=== PATIENT | female | born 1980 | race Caucasian/White ===

== ENCOUNTER 2018-06-01 17:55 | Observation (INO) | payer OTHER ==
[~2018-06-01] VITALS: Ht 162.6 cm; Wt 54.3 kg
[2018-06-01 20:18] VITALS: BP 107/71
[2018-06-01] MEDS ORDERED: PLEASE ENTER ALLERGIES MC SCH (23:30)
[2018-06-01] MEDS ORDERED: morphine SULFATE 10 MG/ML, 1ML IVPush PRN (23:30)
[2018-06-01] MEDS ORDERED: KETOROLAC 30 MG/1 ML IVPush PRN (23:30)
[2018-06-01] MEDS ORDERED: BISACODYL 10 MG SUPP PR PRN (23:30)
[2018-06-02] MEDS ORDERED: DIVA500T4 PO (00:10)
[2018-06-02] MEDS ORDERED: NORE0.3517 PO (00:10)
[2018-06-02] MEDS ORDERED: PANT40TA3 PO (00:10)
[2018-06-02] MEDS: NS + 20MEQ KCL 1,000 ML IV SCH ×3 (00:49→19:06)
[2018-06-02] MEDS ORDERED: NIMO30CA3 PO (01:08)
[2018-06-02] MEDS ORDERED: PROM25AM6 PO (01:08)
[2018-06-02 02:08] VITALS: BP 102/67
[2018-06-02 05:38] LABS: BASOPHILS # (AUTO) 0.03 x10^3/uL (0-0.1); BASOPHILS % (AUTO) 1 % (0-1); EOSINOPHILS # (AUTO) 1.45 x10^3/uL (0-0.4); EOSINOPHILS % (AUTO) 22 % (1-7); LYMPHOCYTES # (AUTO) 2.78 x10^3/uL (1-3.4); LYMPHOCYTES % (AUTO) 42 % (22-44); MD NO; MEAN CORPUSCULAR HEMOGLOBIN 30.6 pg (27.0-34.8); MEAN PLATELET VOLUME 7.8 fL (7.4-10.4); MONOCYTES # (AUTO) 0.38 x10^3/uL (0.2-0.8); MONOCYTES % (AUTO) 6 % (2-9); NEUTROPHILS # (AUTO) 2.03 x10^3/uL (1.8-6.8); NEUTROPHILS % (AUTO) 30 % (42-75); PLATELET COUNT 212 x10^3/uL (130-400); RED BLOOD COUNT 4.01 x10^6/uL (3.82-5.3); RED CELL DISTRIBUTION WIDTH 13.7 % (9.6-15.2)
[2018-06-02 05:48] LABS: ALBUMIN 2.5 g/dL (3.4-5.0); ANION GAP 7 mmol/L (5-15); CHLORIDE 115 mmol/L (98-107)
[2018-06-02 05:53] LABS: ALANINE AMINOTRANSFERASE 85 U/L (12-78); ALKALINE PHOSPHATASE 72 U/L (45-117); BILIRUBIN,TOTAL 0.6 mg/dL (0.2-1.0); CREATININE 0.62 mg/dL (0.55-1.02); TOTAL PROTEIN 5.5 g/dL (6.4-8.2)
[2018-06-02 07:46] VITALS: BP 98/64
[2018-06-02] MEDS ORDERED: NIFE30TA13 PO (10:17)
[2018-06-02 13:50] VITALS: BP 114/74
[2018-06-02] MEDS ORDERED: SINCALIDE (KINEVAC) 5 MCG ONE (14:11)
[2018-06-02 19:42] VITALS: BP 112/76
[2018-06-02] MEDS: DIVALPROEX 500 MG TAB.ER.24H PO SCH (21:26)
[2018-06-02] MEDS: ONDANSETRON 2MG/ML, 2ML IVPush PRN (21:34)
[2018-06-02 23:42] LABS: CLOSTRIDIUM DIFFICILE ANTIGEN NEGATIVE; CLOSTRIDIUM DIFFICILE TOXIN NEGATIVE (Negative)
[2018-06-03 02:36] VITALS: BP 114/73
[2018-06-03] MEDS: NS + 20MEQ KCL 1,000 ML IV SCH ×2 (03:35→15:50)
[2018-06-03 06:02] LABS: BASOPHILS # (AUTO) 0.01 x10^3/uL (0-0.1); BASOPHILS % (AUTO) 0 % (0-1); EOSINOPHILS # (AUTO) 1.35 x10^3/uL (0-0.4); EOSINOPHILS % (AUTO) 20 % (1-7); LYMPHOCYTES # (AUTO) 2.59 x10^3/uL (1-3.4); LYMPHOCYTES % (AUTO) 39 % (22-44); MD NO; MEAN CORPUSCULAR HEMOGLOBIN 30.4 pg (27.0-34.8); MEAN CORPUSCULAR HGB CONC 33.6 g/dL (32.4-35.8); MEAN CORPUSCULAR VOLUME 90.4 fL (80-100); MONOCYTES # (AUTO) 0.51 x10^3/uL (0.2-0.8); MONOCYTES % (AUTO) 8 % (2-9); NEUTROPHILS # (AUTO) 2.15 x10^3/uL (1.8-6.8); NEUTROPHILS % (AUTO) 33 % (42-75); PLATELET COUNT 211 x10^3/uL (130-400); RED BLOOD COUNT 4.13 x10^6/uL (3.82-5.3); RED CELL DISTRIBUTION WIDTH 13.1 % (9.6-15.2)
[2018-06-03 06:15] LABS: ALBUMIN 2.8 g/dL (3.4-5.0); ANION GAP 8 mmol/L (5-15); CALCIUM 8.3 mg/dL (8.5-10.1); CHLORIDE 111 mmol/L (98-107)
[2018-06-03 06:20] LABS: ALANINE AMINOTRANSFERASE 78 U/L (12-78); ALKALINE PHOSPHATASE 72 U/L (45-117); BILIRUBIN,TOTAL 0.7 mg/dL (0.2-1.0); CREATININE 0.66 mg/dL (0.55-1.02)
[2018-06-03 07:19] VITALS: BP 114/71
[2018-06-03] MEDS: PANTOPROZOLE 40MG TABLET PO SCH (08:07)
[2018-06-03] MEDS: niFEDipine ER 30 MG TABLET.ER PO SCH (08:08)
[2018-06-03] MEDS: DIVALPROEX 500 MG TAB.ER.24H PO SCH ×2 (08:08→21:31)
[2018-06-03] MEDS ORDERED: PANTOPROZOLE 40MG TABLET PO SCH (09:00)
[2018-06-03] MEDS ORDERED: DIVALPROEX 500 MG TAB.ER.24H PO SCH (09:00)
[2018-06-03] MEDS ORDERED: NORETHINDRONE PO SCH (09:00)
[2018-06-03] MEDS: ONDANSETRON 2MG/ML, 2ML IVPush PRN (10:21)
[2018-06-03] MEDS: PROMETHAZINE 25MG TABLET PO PRN ×2 (12:39→21:31)
[2018-06-03 12:41] VITALS: BP 112/73
[2018-06-03] MEDS: NORETHINDRONE PO SCH (17:00)
[2018-06-03 19:44] VITALS: BP 102/67
[2018-06-04 02:07] VITALS: BP 111/72
[2018-06-04] MEDS: NS + 20MEQ KCL 1,000 ML IV SCH ×2 (02:19→11:06)
[2018-06-04] MEDS: PROMETHAZINE 25MG TABLET PO PRN ×2 (03:49→08:57)
[2018-06-04 07:01] VITALS: BP 110/73
[2018-06-04] MEDS: niFEDipine ER 30 MG TABLET.ER PO SCH (08:05)
[2018-06-04] MEDS: PANTOPROZOLE 40MG TABLET PO SCH (08:05)
[2018-06-04] MEDS: DIVALPROEX 500 MG TAB.ER.24H PO SCH (08:05)
[2018-06-24] MEDS ORDERED: HYDR-3240 PO (09:16)
[2018-06-24] MEDS ORDERED: PROM25SU34 RC (09:16)
[2018-06-24] MEDS ORDERED: MULT1TAB60 PO (09:16)
== END 2018-06-04 12:07 | disposition home or self-care (01) ==
LOC: 3NE 20:00 → INTOOBSV 20:00
PROVIDERS: ADMIT Internal Medicine; ATTEND Internal Medicine
DX: K83.8 Other specified diseases of biliary tract (principal); E44.1 Mild protein-calorie malnutrition; G40.909 Epilepsy, unspecified, not intractable, without status epilepticus; G43.909 Migraine, unspecified, not intractable, without status migrainosus; Z87.42 Personal history of other diseases of the female genital tract; I77.4 Celiac artery compression syndrome; K85.90 Acute pancreatitis without necrosis or infection, unspecified; R11.2 Nausea with vomiting, unspecified; R19.7 Diarrhea, unspecified; K21.9 Gastro-esophageal reflux disease without esophagitis; Z85.820 Personal history of malignant melanoma of skin
CPT/HCPCS: 36415; 80053; 82150; 83497; 83690; 85025; 87046; 87324; 87427; 89055; 96361; 96374; 96376; G0378; J2405; J2805; J3480; Q0169

== ENCOUNTER 2018-06-08 06:04 | Inpatient (IN) | payer OTHER ==
[~2018-06-08] VITALS: Ht 162.6 cm; Wt 59.8 kg
[~2018-06-08 06:04] MED LIST: DIVA500T4 PO; NIFE30TA13 PO; NIMO30CA3 PO; NORE0.3517 PO; PANT40TA3 PO; PROM25AM6 PO
[2018-06-08] MEDS ORDERED: LACTATED RINGERS 1,000 ML IV SCH (06:50)
[2018-06-08 06:51] VITALS: BP 118/84
[2018-06-08 07:18] LABS: HCG UR SG 1.038 (1.003-1.030)
[2018-06-08] MEDS ORDERED: MIDAZOLAM 1 MG/ML, 2ML ONE ×2 (08:14)
[2018-06-08] MEDS ORDERED: ONDANSETRON 2MG/ML, 2ML ONE (08:14)
[2018-06-08] MEDS ORDERED: FENTANYL PF 250 MCG/5ML ONE ×2 (08:14)
[2018-06-08] MEDS ORDERED: PROMETHAZINE 25 MG/ML, 1ML ONE (08:18)
[2018-06-08] MEDS ORDERED: PROPOFOL 10 MG/ML, 20ML ONE (08:20)
[2018-06-08] MEDS ORDERED: ROCURONIUM 10MG/ML,5ML ONE (08:20)
[2018-06-08] MEDS ORDERED: DEXAMETHASONE 4 MG/ML, 1ML ONE ×2 (08:32)
[2018-06-08] MEDS ORDERED: METOPROLOL 1 MG/ML, 5ML ONE (08:59)
[2018-06-08] MEDS ORDERED: HALOPERIDOL 5 MG/ML IV PRN (09:00)
[2018-06-08] MEDS ORDERED: HYDROmorphone 1 MG/ML, 1ML IV PRN (09:00)
[2018-06-08] MEDS ORDERED: PROMETHAZINE 25 MG/ML, 1ML IV PRN (09:00)
[2018-06-08] MEDS ORDERED: MEPERIDINE/PF 25MG/0.5ML IVPush PRN (09:00)
[2018-06-08] MEDS ORDERED: FENTANYL PF 100 MCG/2ML IV PRN (09:00)
[2018-06-08] MEDS ORDERED: LORazepam 2 MG/ML, 1ML IVPush PRN (09:00)
[2018-06-08] MEDS ORDERED: OXYcodone 5 MG/5 ML ORAL.SOL UDC PO PRN (09:00)
[2018-06-08] MEDS ORDERED: INDOMETHACIN 50 MG SUPP.RECT ONE (09:14)
[2018-06-08] MEDS ORDERED: INDOMETHACIN 50 MG SUPP.RECT PR STA (09:21)
[2018-06-08] MEDS ORDERED: MEPERIDINE/PF 25MG/0.5ML ONE (09:52)
[2018-06-08] MEDS ORDERED: FENTANYL PF 100 MCG/2ML IV ONE (12:00)
[2018-06-08] MEDS ORDERED: PROMETHAZINE 25 MG SUPP PR PRN (12:00)
[2018-06-08] MEDS ORDERED: ONDANSETRON 2MG/ML, 2ML IVPush ONE (12:00)
[2018-06-08 13:14] VITALS: BP 136/83
[2018-06-08] MEDS ORDERED: BISACODYL 10 MG SUPP PR PRN (14:00)
[2018-06-08] MEDS ORDERED: LABETALOL 5MG/ML, 20ML IVPush PRN (14:00)
[2018-06-08] MEDS: ONDANSETRON 2MG/ML, 2ML IVPush PRN (14:04)
[2018-06-08] MEDS: morphine SULFATE 10 MG/ML, 1ML IVPush PRN ×2 (14:05→14:39)
[2018-06-08 14:22] VITALS: BP 121/78
[2018-06-08] MEDS: POTASSIUM CHLORIDE 20 MEQ in LACTATED RINGERS 1,000 ML IV SCH ×2 (14:45→19:56)
[2018-06-08 15:07] LABS: BASOPHILS # (AUTO) 0.03 x10^3/uL (0-0.1); BASOPHILS % (AUTO) 0 % (0-1); EOSINOPHILS # (AUTO) 0.03 x10^3/uL (0-0.4); EOSINOPHILS % (AUTO) 0 % (1-7); LYMPHOCYTES # (AUTO) 0.87 x10^3/uL (1-3.4); LYMPHOCYTES % (AUTO) 12 % (22-44); MD NO; MEAN CORPUSCULAR HEMOGLOBIN 30.3 pg (27.0-34.8); MEAN CORPUSCULAR HGB CONC 33.4 g/dL (32.4-35.8); MEAN CORPUSCULAR VOLUME 90.7 fL (80-100); MONOCYTES # (AUTO) 0.07 x10^3/uL (0.2-0.8); MONOCYTES % (AUTO) 1 % (2-9); NEUTROPHILS # (AUTO) 6.29 x10^3/uL (1.8-6.8); NEUTROPHILS % (AUTO) 86 % (42-75); PLATELET COUNT 235 x10^3/uL (130-400); RED BLOOD COUNT 4.56 x10^6/uL (3.82-5.3); RED CELL DISTRIBUTION WIDTH 13.3 % (9.6-15.2)
[2018-06-08] MEDS: FENTANYL PF 100 MCG/2ML IVPush PRN ×4 (15:09→22:53)
[2018-06-08 15:17] LABS: ANION GAP 7 mmol/L (5-15); CALCIUM 8.5 mg/dL (8.5-10.1); CHLORIDE 111 mmol/L (98-107)
[2018-06-08 15:21] LABS: ALANINE AMINOTRANSFERASE 57 U/L (12-78); ALKALINE PHOSPHATASE 77 U/L (45-117); BILIRUBIN,TOTAL 0.5 mg/dL (0.2-1.0); CREATININE 0.73 mg/dL (0.55-1.02); TOTAL PROTEIN 6.4 g/dL (6.4-8.2)
[2018-06-08] MEDS: DIVALPROEX 500 MG TAB.ER.24H PO SCH (21:01)
[2018-06-08 21:05] VITALS: BP 104/67
[2018-06-09 00:38] VITALS: BP 92/54
[2018-06-09] MEDS: POTASSIUM CHLORIDE 20 MEQ in LACTATED RINGERS 1,000 ML IV SCH ×5 (01:08→22:02)
[2018-06-09] MEDS: FENTANYL PF 100 MCG/2ML IVPush PRN ×8 (02:20→21:57)
[2018-06-09] MEDS: ONDANSETRON 2MG/ML, 2ML IVPush PRN (04:00)
[2018-06-09 05:55] LABS: BASOPHILS # (AUTO) 0.01 x10^3/uL (0-0.1); BASOPHILS % (AUTO) 0 % (0-1); EOSINOPHILS # (AUTO) 0.06 x10^3/uL (0-0.4); EOSINOPHILS % (AUTO) 1 % (1-7); LYMPHOCYTES # (AUTO) 2.87 x10^3/uL (1-3.4); LYMPHOCYTES % (AUTO) 24 % (22-44); MD NO; MEAN CORPUSCULAR HEMOGLOBIN 30.7 pg (27.0-34.8); MEAN CORPUSCULAR VOLUME 90.2 fL (80-100); MEAN PLATELET VOLUME 8.1 fL (7.4-10.4); MONOCYTES % (AUTO) 7 % (2-9); NEUTROPHILS # (AUTO) 8.19 x10^3/uL (1.8-6.8); NEUTROPHILS % (AUTO) 69 % (42-75); PLATELET COUNT 227 x10^3/uL (130-400); RED BLOOD COUNT 3.97 x10^6/uL (3.82-5.3); RED CELL DISTRIBUTION WIDTH 13.1 % (9.6-15.2)
[2018-06-09 06:03] LABS: ALBUMIN 2.6 g/dL (3.4-5.0); CALCIUM 8.3 mg/dL (8.5-10.1); CHLORIDE 109 mmol/L (98-107)
[2018-06-09 06:09] LABS: ALANINE AMINOTRANSFERASE 38 U/L (12-78); ALKALINE PHOSPHATASE 60 U/L (45-117); ANION GAP 8 mmol/L (5-15); BILIRUBIN,TOTAL 0.7 mg/dL (0.2-1.0); CREATININE 0.62 mg/dL (0.55-1.02); TOTAL PROTEIN 5.3 g/dL (6.4-8.2)
[2018-06-09 08:25] VITALS: BP 99/61
[2018-06-09] MEDS: DIVALPROEX 500 MG TAB.ER.24H PO SCH ×2 (10:49→19:56)
[2018-06-09] MEDS: niFEDipine ER 30 MG TABLET.ER PO SCH (10:49)
[2018-06-09] MEDS: PANTOPROZOLE 40MG TABLET PO SCH (10:49)
[2018-06-09] MEDS: PROMETHAZINE 25 MG/ML, 1ML IM PRN ×3 (10:51→21:58)
[2018-06-09 12:44] VITALS: BP 91/60
[2018-06-09] MEDS: NORETHINDRONE HOMEMEDPO SCH (17:00)
[2018-06-09 20:00] VITALS: BP 104/70
[2018-06-09 23:44] VITALS: BP 93/58
[2018-06-10] VITALS (10 sets, daily range): BP systolic 96–118; BP diastolic 63–80
[2018-06-10] MEDS: FENTANYL PF 100 MCG/2ML IVPush PRN ×6 (02:11→21:13)
[2018-06-10] MEDS: POTASSIUM CHLORIDE 20 MEQ in LACTATED RINGERS 1,000 ML IV SCH ×4 (02:56→21:02)
[2018-06-10] MEDS: PROMETHAZINE 25 MG/ML, 1ML IM PRN ×4 (04:13→17:19)
[2018-06-10 05:42] LABS: BASOPHILS # (AUTO) 0.02 x10^3/uL (0-0.1); BASOPHILS % (AUTO) 0 % (0-1); EOSINOPHILS % (AUTO) 3 % (1-7); LYMPHOCYTES % (AUTO) 36 % (22-44); MD NO; MEAN CORPUSCULAR HEMOGLOBIN 31.1 pg (27.0-34.8); MEAN CORPUSCULAR HGB CONC 34.2 g/dL (32.4-35.8); MEAN CORPUSCULAR VOLUME 90.9 fL (80-100); MEAN PLATELET VOLUME 8.3 fL (7.4-10.4); MONOCYTES # (AUTO) 0.56 x10^3/uL (0.2-0.8); MONOCYTES % (AUTO) 8 % (2-9); NEUTROPHILS # (AUTO) 3.77 x10^3/uL (1.8-6.8); NEUTROPHILS % (AUTO) 53 % (42-75); PLATELET COUNT 211 x10^3/uL (130-400); RED BLOOD COUNT 3.87 x10^6/uL (3.82-5.3); RED CELL DISTRIBUTION WIDTH 13.2 % (9.6-15.2)
[2018-06-10 05:46] LABS: CHLORIDE 110 mmol/L (98-107)
[2018-06-10 06:01] LABS: ALANINE AMINOTRANSFERASE 38 U/L (12-78); ALBUMIN 2.7 g/dL (3.4-5.0); ALKALINE PHOSPHATASE 68 U/L (45-117); ANION GAP 7 mmol/L (5-15); BILIRUBIN,TOTAL 0.8 mg/dL (0.2-1.0); CALCIUM 8.6 mg/dL (8.5-10.1); CREATININE 0.65 mg/dL (0.55-1.02); TOTAL PROTEIN 5.9 g/dL (6.4-8.2)
[2018-06-10] MEDS: PANTOPROZOLE 40MG TABLET PO SCH (07:43)
[2018-06-10] MEDS: niFEDipine ER 30 MG TABLET.ER PO SCH (07:43)
[2018-06-10] MEDS: DIVALPROEX 500 MG TAB.ER.24H PO SCH ×2 (07:43→19:41)
[2018-06-10] MEDS: HYDROcodone/APAP 5/325 TABLET PO PRN ×3 (11:02→19:42)
[2018-06-10] MEDS: NORETHINDRONE HOMEMEDPO SCH (17:00)
[2018-06-11] VITALS (7 sets, daily range): BP systolic 95–122; BP diastolic 58–83
[2018-06-11] MEDS: POTASSIUM CHLORIDE 20 MEQ in LACTATED RINGERS 1,000 ML IV SCH ×4 (02:12→20:27)
[2018-06-11] MEDS: FENTANYL PF 100 MCG/2ML IVPush PRN ×4 (02:22→20:27)
[2018-06-11] MEDS: HYDROcodone/APAP 5/325 TABLET PO PRN ×3 (05:16→17:42)
[2018-06-11 06:07] LABS: CHLORIDE 106 mmol/L (98-107)
[2018-06-11 06:16] LABS: ALANINE AMINOTRANSFERASE 39 U/L (12-78); ALKALINE PHOSPHATASE 78 U/L (45-117); ANION GAP 10 mmol/L (5-15); BASOPHILS # (AUTO) 0.04 x10^3/uL (0-0.1); BASOPHILS % (AUTO) 1 % (0-1); BILIRUBIN,TOTAL 0.5 mg/dL (0.2-1.0); CALCIUM 9.2 mg/dL (8.5-10.1); CREATININE 0.62 mg/dL (0.55-1.02); EOSINOPHILS # (AUTO) 0.39 x10^3/uL (0-0.4); EOSINOPHILS % (AUTO) 5 % (1-7); LYMPHOCYTES # (AUTO) 2.36 x10^3/uL (1-3.4); LYMPHOCYTES % (AUTO) 31 % (22-44); MD NO; MEAN CORPUSCULAR HEMOGLOBIN 30.9 pg (27.0-34.8); MEAN CORPUSCULAR HGB CONC 33.7 g/dL (32.4-35.8); MEAN CORPUSCULAR VOLUME 91.7 fL (80-100); MEAN PLATELET VOLUME 8.6 fL (7.4-10.4); MONOCYTES # (AUTO) 0.62 x10^3/uL (0.2-0.8); MONOCYTES % (AUTO) 8 % (2-9); NEUTROPHILS # (AUTO) 4.19 x10^3/uL (1.8-6.8); NEUTROPHILS % (AUTO) 55 % (42-75); PLATELET COUNT 217 x10^3/uL (130-400); RED BLOOD COUNT 4.25 x10^6/uL (3.82-5.3); RED CELL DISTRIBUTION WIDTH 13.3 % (9.6-15.2); TOTAL PROTEIN 6.6 g/dL (6.4-8.2)
[2018-06-11] MEDS: PROMETHAZINE 25 MG/ML, 1ML IM PRN ×4 (07:35→21:42)
[2018-06-11] MEDS: DIVALPROEX 500 MG TAB.ER.24H PO SCH ×2 (09:35→20:27)
[2018-06-11] MEDS: niFEDipine ER 30 MG TABLET.ER PO SCH (09:35)
[2018-06-11] MEDS: PANTOPROZOLE 40MG TABLET PO SCH (09:35)
[2018-06-11] MEDS ORDERED: OMNIPAQUE 350 MG/ML, 100ML BOTTLE ONE (10:14)
[2018-06-11] MEDS: NORETHINDRONE HOMEMEDPO SCH (17:00)
[2018-06-12] MEDS: POTASSIUM CHLORIDE 20 MEQ in LACTATED RINGERS 1,000 ML IV SCH ×5 (01:13→20:57)
[2018-06-12] MEDS: HYDROcodone/APAP 5/325 TABLET PO PRN ×5 (01:13→20:57)
[2018-06-12 01:31] VITALS: BP 104/71
[2018-06-12 04:48] LABS: BASOPHILS # (AUTO) 0.03 x10^3/uL (0-0.1); BASOPHILS % (AUTO) 0 % (0-1); EOSINOPHILS # (AUTO) 0.74 x10^3/uL (0-0.4); EOSINOPHILS % (AUTO) 12 % (1-7); LYMPHOCYTES # (AUTO) 2.41 x10^3/uL (1-3.4); LYMPHOCYTES % (AUTO) 39 % (22-44); MD NO; MEAN CORPUSCULAR HEMOGLOBIN 30.2 pg (27.0-34.8); MEAN CORPUSCULAR HGB CONC 33.4 g/dL (32.4-35.8); MEAN CORPUSCULAR VOLUME 90.5 fL (80-100); MEAN PLATELET VOLUME 8.2 fL (7.4-10.4); MONOCYTES # (AUTO) 0.45 x10^3/uL (0.2-0.8); MONOCYTES % (AUTO) 7 % (2-9); NEUTROPHILS # (AUTO) 2.53 x10^3/uL (1.8-6.8); NEUTROPHILS % (AUTO) 41 % (42-75); PLATELET COUNT 229 x10^3/uL (130-400); RED BLOOD COUNT 4.09 x10^6/uL (3.82-5.3); RED CELL DISTRIBUTION WIDTH 13.1 % (9.6-15.2)
[2018-06-12 05:03] LABS: ALBUMIN 2.8 g/dL (3.4-5.0); ANION GAP 5 mmol/L (5-15); CALCIUM 9.1 mg/dL (8.5-10.1); CHLORIDE 108 mmol/L (98-107)
[2018-06-12 05:06] LABS: ALANINE AMINOTRANSFERASE 36 U/L (12-78); ALKALINE PHOSPHATASE 74 U/L (45-117); BILIRUBIN,TOTAL 0.6 mg/dL (0.2-1.0); CREATININE 0.64 mg/dL (0.55-1.02); TOTAL PROTEIN 6.4 g/dL (6.4-8.2)
[2018-06-12 05:52] VITALS: BP 101/67
[2018-06-12] MEDS: FENTANYL PF 100 MCG/2ML IVPush PRN ×2 (05:52→10:04)
[2018-06-12 08:28] VITALS: BP 95/62
[2018-06-12] MEDS: PANTOPROZOLE 40MG TABLET PO SCH (08:37)
[2018-06-12] MEDS: DIVALPROEX 500 MG TAB.ER.24H PO SCH ×2 (08:37→20:57)
[2018-06-12] MEDS: PROMETHAZINE 25 MG/ML, 1ML IM PRN ×4 (08:37→20:58)
[2018-06-12] MEDS: niFEDipine ER 30 MG TABLET.ER PO SCH (08:40)
[2018-06-12 10:00] VITALS: BP 108/64
[2018-06-12] MEDS ORDERED: SODIUM CHLORIDE 0.9%, 500ML IVBOLUS ONE (11:00)
[2018-06-12 13:39] VITALS: BP 114/72
[2018-06-12] MEDS: NORETHINDRONE HOMEMEDPO SCH (16:37)
[2018-06-12 19:27] VITALS: BP 108/73
[2018-06-13 01:34] VITALS: BP 114/76
[2018-06-13] MEDS: PROMETHAZINE 25 MG/ML, 1ML IM PRN ×4 (01:34→16:29)
[2018-06-13] MEDS: POTASSIUM CHLORIDE 20 MEQ in LACTATED RINGERS 1,000 ML IV SCH ×3 (02:44→13:33)
[2018-06-13 06:55] VITALS: BP 102/68
[2018-06-13] MEDS: DIVALPROEX 500 MG TAB.ER.24H PO SCH (08:25)
[2018-06-13] MEDS: niFEDipine ER 30 MG TABLET.ER PO SCH (08:25)
[2018-06-13] MEDS: PANTOPROZOLE 40MG TABLET PO SCH (08:25)
[2018-06-13] MEDS: HYDROcodone/APAP 5/325 TABLET PO PRN ×3 (08:27→16:27)
[2018-06-13 12:50] VITALS: BP 107/68
[2018-06-13] MEDS ORDERED: HYDR-3240 PO (13:06)
[2018-06-13 13:50] VITALS: BP 134/73
[2018-06-13] MEDS: NORETHINDRONE HOMEMEDPO SCH (16:33)
== END 2018-06-13 17:17 | disposition home or self-care (01) | DRG 444 ==
LOC: OUT 06:04 → 3NE 13:10 → OUT 14:32
PROVIDERS: ADMIT Internal Medicine; ATTEND Internal Medicine
PROC: 0F7D8DZ Dilation of Pancreatic Duct with Intraluminal Device, Via Natural or Artificial Opening Endoscopic (ICD-10-PCS; 2018-06-08)
PROC: BF111ZZ Fluoroscopy of Biliary and Pancreatic Ducts using Low Osmolar Contrast (ICD-10-PCS; 2018-06-08)
PROC: 0F798DZ Dilation of Common Bile Duct with Intraluminal Device, Via Natural or Artificial Opening Endoscopic (ICD-10-PCS; principal; 2018-06-08 08:00)
DX: K83.8 Other specified diseases of biliary tract (principal); K85.90 Acute pancreatitis without necrosis or infection, unspecified; E44.1 Mild protein-calorie malnutrition; G40.909 Epilepsy, unspecified, not intractable, without status epilepticus; G43.909 Migraine, unspecified, not intractable, without status migrainosus; K21.9 Gastro-esophageal reflux disease without esophagitis; Z85.820 Personal history of malignant melanoma of skin; Z87.11 Personal history of peptic ulcer disease; Z90.49 Acquired absence of other specified parts of digestive tract; Z88.0 Allergy status to penicillin; Z68.22 Body mass index [BMI] 22.0-22.9, adult
CPT/HCPCS: 36415; 74177; 74330; 80053; 81025; 83690; 83735; 84100; 85025; J1100; J2175; J2250; J2405; J2550; J2704; J3010; J3480; Q9967; C1769; C1894; C2625; J2270; J7040; J7120

== ENCOUNTER 2018-06-30 07:30 | Day surgery (SDC) | payer OTHER ==
[~2018-06-30] VITALS: Ht 162.6 cm; Wt 58.0 kg
[~2018-06-30 07:30] MED LIST changes: +HYDR-3240 PO; +MULT1TAB60 PO; +PROM25SU34 RC
[2018-06-30 08:04] VITALS: BP 125/87
[2018-06-30 08:30] LABS: HCG UR SG 1.025 (1.003-1.030)
[2018-06-30] MEDS ORDERED: MIDAZOLAM 1 MG/ML, 2ML ONE (09:01)
[2018-06-30] MEDS ORDERED: FENTANYL PF 100 MCG/2ML ONE ×2 (09:02→11:08)
[2018-06-30] MEDS ORDERED: FAMOTIDINE 20 MG/2 ML ONE ×2 (09:13)
[2018-06-30] MEDS ORDERED: SCOPOLAMINE PATCH, 1.5MG PATCH.TD72 TD ONE ×2 (09:13)
[2018-06-30] MEDS ORDERED: PROPOFOL 10 MG/ML, 20ML ONE (09:32)
[2018-06-30] MEDS ORDERED: DEXAMETHASONE 4 MG/ML, 1ML ONE (09:32)
[2018-06-30] MEDS ORDERED: PROPOFOL 10 MG/ML, 50ML ONE (09:32)
[2018-06-30] MEDS ORDERED: SUCCINYLCHOLINE 20 MG/ML, 10ML ONE (09:32)
[2018-06-30] MEDS ORDERED: ONDANSETRON 2MG/ML, 2ML ONE (09:32)
[2018-06-30] MEDS ORDERED: HALOPERIDOL 5 MG/ML IV PRN (10:00)
[2018-06-30] MEDS ORDERED: HYDROmorphone 2 MG/ML, 1ML IV PRN (10:00)
[2018-06-30] MEDS ORDERED: LABETALOL 5MG/ML, 20ML IV PRN (10:00)
[2018-06-30] MEDS ORDERED: LORazepam 2 MG/ML, 1ML IVPush PRN (10:00)
[2018-06-30] MEDS ORDERED: hydrALAzine 20 MG/ML, 1ML IV PRN (10:00)
[2018-06-30] MEDS ORDERED: MEPERIDINE/PF 25MG/0.5ML IVPush PRN (10:00)
[2018-06-30] MEDS ORDERED: PROMETHAZINE 25 MG/ML, 1ML IV PRN (10:00)
[2018-06-30] MEDS ORDERED: OXYcodone 5 MG/5 ML ORAL.SOL UDC PO PRN (10:00)
[2018-06-30] MEDS ORDERED: INDOMETHACIN 50 MG SUPP.RECT ONE (10:22)
[2018-06-30] MEDS ORDERED: PROMETHAZINE 25 MG/ML, 1ML ONE (10:24)
[2018-06-30] MEDS ORDERED: ACETAMINOPHEN 325 MG TABLET PO PRN (11:00)
[2018-06-30] MEDS ORDERED: INDOMETHACIN 50 MG SUPP.RECT PR ONE (11:00)
[2018-06-30] MEDS ORDERED: ACETAMINOPHEN 650 MG/20.3 ML UDC ONE (11:08)
[2018-06-30] MEDS ORDERED: OXYcodone 5 MG/5 ML ORAL.SOL UDC ONE (11:09)
[2018-06-30] MEDS: FENTANYL PF 100 MCG/2ML IV PRN ×2 (11:11→11:20)
[2018-06-30] MEDS ORDERED: MAALOX/HYOSCYAMINE/LIDOCAINE 45 ML BTL PO ONE (12:00)
== END 2018-06-30 14:05 | disposition home or self-care (01) ==
LOC: OUT 07:30
PROVIDERS: ATTEND Internal Medicine Gastroenterology
DX: K83.1 Obstruction of bile duct (principal); K82.8 Other specified diseases of gallbladder; K83.8 Other specified diseases of biliary tract; Z90.49 Acquired absence of other specified parts of digestive tract; Z88.0 Allergy status to penicillin; Z88.8 Allergy status to other drugs, medicaments and biological substances
CPT/HCPCS: 43274; 43275; 74330; 81025; J0330; J1100; J2250; J2405; J2550; J2704; J3010; S0028

== ENCOUNTER → 2021-02-12 | Outpatient (CLI) | payer OTHER ==
[~2021-02-12] MED LIST changes: +HYDR-1067 PO; -HYDR-3240 PO; +LIPA1CAP20 PO; +MULT-449 PO; +MULT-790 PO; -MULT1TAB60 PO; -NORE0.3517 PO; +NORE0.3560 PO; +PROM25TA10 PO; +ZOLM2.5T5 PO
== END | disposition home or self-care (01) ==
LOC: STAR 15:22
PROVIDERS: ATTEND Specialist
DX: Z20.822 Contact with and (suspected) exposure to COVID-19 (principal); R10.2 Pelvic and perineal pain; N94.12 Deep dyspareunia
CPT/HCPCS: U0003

== ENCOUNTER 2021-02-18 07:29 | Day surgery (SDC) | payer OTHER ==
[~2021-02-18] VITALS: Ht 162.6 cm; Wt 52.1 kg
[~2021-02-18 07:29] MED LIST changes: -HYDR-1067 PO; +HYDR-2214 PO
[2021-02-18 07:57] VITALS: BP 124/76
[2021-02-18] MEDS ORDERED: LACTATED RINGERS 1,000 ML IV SCH (08:00)
[2021-02-18 08:12] LABS: HCG UR SG 1.011 (1.003-1.030)
[2021-02-18] MEDS ORDERED: MIDAZOLAM 1 MG/ML, 2ML ONE (09:27)
[2021-02-18] MEDS ORDERED: FENTANYL PF 250 MCG/5ML ONE (09:27)
[2021-02-18] MEDS ORDERED: BUPIVACAINE/PF 0.25% ONE (09:44)
[2021-02-18] MEDS ORDERED: KETOROLAC 30 MG/1 ML ONE (10:10)
[2021-02-18] MEDS ORDERED: HYDROmorphone 1 MG/ML, 1ML INJ IVPush PRN (11:00)
[2021-02-18] MEDS ORDERED: METHOCARBAMOL 1,000 MG in DEXTROSE 5% 100 ML IV PRN (11:00)
[2021-02-18] MEDS ORDERED: HALOPERIDOL 5 MG/ML IV PRN (11:00)
[2021-02-18] MEDS ORDERED: LABETALOL 5MG/ML, 20ML IV PRN (11:00)
[2021-02-18] MEDS ORDERED: hydrALAzine 20 MG/ML, 1ML IV PRN (11:00)
[2021-02-18] MEDS ORDERED: MIDAZOLAM 1 MG/ML, 2ML IV PRN (11:00)
[2021-02-18] MEDS ORDERED: PROMETHAZINE 25 MG/ML, 1ML IVPush PRN (11:00)
[2021-02-18] MEDS ORDERED: ALBUTEROL SULFATE 2.5 MG/3 ML NPPB PRN (11:00)
[2021-02-18] MEDS ORDERED: ACETAMINOPHEN 325 MG TABLET PO PRN (11:00)
[2021-02-18] MEDS ORDERED: MEPERIDINE/PF 25MG/0.5ML IVPush PRN (11:00)
[2021-02-18] MEDS ORDERED: FENTANYL PF 100 MCG/2ML IV PRN (11:00)
[2021-02-18] MEDS ORDERED: PROPOFOL 10 MG/ML, 20ML ONE (11:47)
[2021-02-18] MEDS ORDERED: ONDANSETRON 2MG/ML, 2ML ONE (11:47)
[2021-02-18] MEDS ORDERED: LIDOCAINE-MPF 2% ,5ML ONE (11:47)
[2021-02-18] MEDS ORDERED: CEFAZOLIN 1,000 MG ONE (11:47)
[2021-02-18] MEDS ORDERED: DEXAMETHASONE 4 MG/ML, 1ML ONE (11:47)
[2021-02-18] MEDS ORDERED: NEOSTIGMINE 1 MG/ML, 10ML ONE (11:47)
[2021-02-18] MEDS ORDERED: GLYCOPYRROLATE 0.2MG/1ML, 5ML ONE (11:47)
[2021-02-18] MEDS ORDERED: ROCURONIUM 10MG/ML,5ML ONE (11:47)
[2021-02-18] MEDS ORDERED: METOCLOPRAMIDE 5 MG/ML, 2ML ONE (12:02)
[2021-02-18] MEDS ORDERED: MEPERIDINE/PF 25MG/ML,1ML ONE (12:19)
[2021-02-18] MEDS ORDERED: METOCLOPRAMIDE 5 MG/ML, 2ML IVPush ONE (12:30)
[2021-02-18] MEDS: OXYcodone 5 MG/5 ML ORAL.SOL UDC PO PRN ×2 (14:16→17:36)
== END 2021-02-18 17:55 | disposition home or self-care (01) ==
LOC: OUT 07:29
PROVIDERS: ATTEND Specialist
DX: N94.12 Deep dyspareunia (principal); D25.9 Leiomyoma of uterus, unspecified; N94.19 Other specified dyspareunia; R10.2 Pelvic and perineal pain; N85.4 Malposition of uterus; G40.909 Epilepsy, unspecified, not intractable, without status epilepticus; G43.109 Migraine with aura, not intractable, without status migrainosus; Z88.0 Allergy status to penicillin; Z88.8 Allergy status to other drugs, medicaments and biological substances; Z90.49 Acquired absence of other specified parts of digestive tract; Z98.890 Other specified postprocedural states; Z79.899 Other long term (current) drug therapy; Z72.89 Other problems related to lifestyle
CPT/HCPCS: 58571; 81025; 88307; J0690; J1100; J1885; J2175; J2250; J2405; J2704; J2710; J2765; J3010; J7120; S2900